=== PATIENT | female | born 1995 | race Two or more races ===

== ENCOUNTER 2017-02-23 15:13 | Emergency (ER) | payer SELFPAY ==
--- NOTE | 2017-02-23 15:43 | ER Document Report ---
ED Medical Screen (RME) - General Chief Complaint: Lower Abdominal Pain Stated Complaint: ABDOMINAL PAIN 9 WEEKS Time Seen by Provider: 02/23/17 15:31 Mode of Arrival: Ambulatory Information source: Patient TRAVEL OUTSIDE OF THE [place] IN LAST 30 DAYS: No - HPI Patient complains to provider of: , abdominal pain Notes: 02/23/17 15:42 Patient is a 21-year-old female who is approximately 9 weeks , presenting to the emergency room today complaining of left-sided abdominal pain this been going on for the past 2 days, she denies any abnormal discharge, no vaginal bleeding, no dysuria, no nausea, vomiting or diarrhea, no fever chills, patient has not yet been seen by SANDBLAST CARVER during this - Related Data Allergies/Adverse Reactions: No Known Allergies Allergy (Verified 02/23/17 15:26) Past Medical History - Social History Chew tobacco use (# tins/day): No Frequency of alcohol use: Occasional Drug Abuse: None Renal/ Medical History: Denies: Hx Peritoneal Dialysis Psychiatric Medical History: Reports: Hx Depression Surgical Hx: Negative - Immunizations Hx Diphtheria, Pertussis, Tetanus Vaccination: Yes History of Influenza Vaccine for 02/2017 - 07/2017 Season: No Physical Exam - Vital signs Vitals: Temp Pulse Resp BP Pulse Ox 98.8 F 73 18 125/78 100 02/23/17 15:26 02/23/17 15:26 02/23/17 15:26 02/23/17 15:26 02/23/17 15:26 Course - Vital Signs Vital signs: Temp Pulse Resp BP Pulse Ox 98.8 F 73 18 125/78 100 02/23/17 15:26 02/23/17 15:26 02/23/17 15:26 02/23/17 15:26 02/23/17 15:26
[2017-02-23 16:24] LABS: ABSOLUTE EOSINOPHILS # (AUTO) 0.2 10^3/uL (0.0-0.6); ABSOLUTE LYMPHOCYTES (AUTO) 2.7 10^3/uL (0.5-4.7); ABSOLUTE MONOCYTES (AUTO) 0.6 10^3/uL (0.1-1.4); ABSOLUTE NEUT (AUTO) 9.1 10^3/uL (1.7-8.2); APPEARANCE,URINE CLOUDY; BASOPHILS % (AUTO) 0.3 % (0-2); BILIRUBIN,URINE NEGATIVE (NEGATIVE); EOSINOPHILS % (AUTO) 1.8 % (0-6); GLUCOSE, URINE NEGATIVE (NEGATIVE); HEMATOCRIT 40.2 % (36.0-47.0); HEMOGLOBIN 14.1 g/dL (12.0-15.5); HGB HCT DIFFERENCE 2.1; KETONES,URINE NEGATIVE (NEGATIVE); LEUKOCYTE ESTERASE,URINE NEGATIVE (NEGATIVE); LYMPHOCYTES % (AUTO) 21.2 % (13-45); MEAN CORPUSCULAR HEMOGLOBIN 30.3 pg (27.0-33.4); MEAN CORPUSCULAR VOLUME 87 fl (80-97); NITRITE,URINE NEGATIVE (NEGATIVE); PROTEIN,URINE NEGATIVE (NEGATIVE); RED BLOOD COUNT 4.63 10^6/uL (3.72-5.28); RED CELL DISTRIBUTION WIDTH 12.9 % (11.5-14.0); SEGMENTED NEUTROPHILS % (AUTO) 71.7 % (42-78); URINE SPECIFIC GRAVITY 1.014; UROBILINOGEN,URINE NEGATIVE mg/dL (<2.0); WHITE BLOOD COUNT 12.7 10^3/uL (4.0-10.5)
[2017-02-23 16:42] LABS: ALANINE AMINOTRANSFERASE 24 U/L (9-52); ALBUMIN 4.4 g/dL (3.5-5.0); ALKALINE PHOSPHATASE 47 U/L (38-126); ANION GAP 12 (5-19); ASPARTATE AMINO TRANSFERASE 20 U/L (14-36); BILIRUBIN,DIRECT 0.3 mg/dL (0.0-0.4); BILIRUBIN,TOTAL 0.4 mg/dL (0.2-1.3); BLOOD UREA NITROGEN 10 mg/dL (7-20); CALCIUM 10.3 mg/dL (8.4-10.2); CARBON DIOXIDE 24 mmol/L (22-30); CHLORIDE 102 mmol/L (98-107); CREATININE RESULT 0.66 mg/dL (0.52-1.25); GLUCOSE 94 mg/dL (75-110); POTASSIUM 3.9 mmol/L (3.6-5.0); SODIUM 137.5 mmol/L (137-145); TOTAL PROTEIN 7.6 g/dL (6.3-8.2)
--- NOTE | 2017-02-23 16:46 | ER Document Report ---
ED General - General Chief Complaint: Lower Abdominal Pain Stated Complaint: ABDOMINAL PAIN 9 WEEKS Time Seen by Provider: 02/23/17 15:31 Mode of Arrival: Ambulatory TRAVEL OUTSIDE OF THE [place] IN LAST 30 DAYS: No - HPI Notes: Patient is a 21-year-old female who presents the ED complaining of intermittent left lower quadrant pain. Patient states the pain is described as sharp and does not radiate. Patient is currently asymptomatic. Patient does note occasional morning nausea, but is still eating and drinking without any difficulties. She is urinating normally and having normal bowel movements. She denies any abdominal surgeries or other significant past medical history. Patient denies any history of abortions or miscarriages. Patient states that she has no vaginal bleeding or discharge. Patient has not established with an FLEET TECHNICIAN yet. Patient believes she is about 9 weeks . She has not been using any [id number] meds for her symptoms. Patient denies any smoking or IV drug use. Denies any headache, fever, neck pain, URI, sore throat, chest pain, palpitations, syncope, cough, shortness of breath, wheeze, dyspnea, vomiting/diarrhea, urinary retention, dysuria, hematuria, back pain, or rash. - Related Data Allergies/Adverse Reactions: No Known Allergies Allergy (Verified 02/23/17 15:26) Past Medical History - General Information source: Patient - Social History Smoking Status: Never Smoker Chew tobacco use (# tins/day): No Frequency of alcohol use: Occasional Drug Abuse: None Family History: Reviewed & Not Pertinent Patient has suicidal ideation: No Patient has homicidal ideation: No Renal/ Medical History: Denies: Hx Peritoneal Dialysis Psychiatric Medical History: Reports: Hx Depression Surgical Hx: Negative - Immunizations Hx Diphtheria, Pertussis, Tetanus Vaccination: Yes Review of Systems - Review of Systems Notes: REVIEW OF SYSTEMS: CONSTITUTIONAL : Denies fever, chills, or sweats. Denies recent illness. EENT: Denies eye, ear, throat, or mouth pain or symptoms. Denies nasal or sinus congestion or discharge. Denies throat, tongue, or mouth swelling or difficulty swallowing. CARDIOVASCULAR: Denies chest pain. Denies palpitations or racing or irregular heart beat. Denies ankle edema. RESPIRATORY: Denies cough, cold, or chest congestion. Denies shortness of breath, difficulty breathing, or wheezing. GASTROINTESTINAL: see hpi. no melena/hematochezia. GENITOURINARY: Denies difficulty urinating, painful urination, burning, frequency, blood in urine, or discharge. FEMALE GENITOURINARY: Denies vaginal bleeding, heavy or abnormal periods, irregular periods. Denies vaginal discharge or odor. MUSCULOSKELETAL: Denies back or neck pain or stiffness. Denies joint pain or swelling. SKIN: Denies rash, lesions or sores. NEUROLOGICAL: Denies confusion or altered mental status. Denies passing out or loss of consciousness. Denies dizziness or lightheadedness. Denies headache. Denies weakness or paralysis or loss of use of either side. Denies problems with gait or speech. Denies sensory loss, numbness, or tingling. ALL OTHER SYSTEMS REVIEWED AND NEGATIVE. Dictation was performed using embraase voice recognition software Physical Exam - Vital signs Vitals: Temp Pulse Resp BP Pulse Ox 98.8 F 73 18 125/78 100 02/23/17 15:26 02/23/17 15:26 02/23/17 15:26 02/23/17 15:26 02/23/17 15:26 Notes: PHYSICAL EXAMINATION: GENERAL: Well-appearing, well-nourished and in no acute distress. A&Ox4. Pt sitting comfortably on exam table in no discomfort. HEAD: Atraumatic, normocephalic. EYES: Pupils equal round and reactive to light, extraocular movements intact, sclera anicteric, conjunctiva are normal. ENT: Nares patent and without discharge. oropharynx clear without exudates. No tonsilar hypertrophy or erythema. Moist mucous membranes. No sinus tenderness. NECK: Normal range of motion, supple without lymphadenopathy LUNGS: Breath sounds clear to auscultation bilaterally and equal. No wheezes rales or rhonchi. HEART: Regular rate and rhythm without murmurs, rubs, gallops. ABDOMEN: Soft, nontender, nondistended abdomen. No guarding, no rebound. No masses appreciated. Normal bowel sounds present. No CVA tenderness bilaterally. : deferred Musculoskeletal: LE's b/l: FROM to passive/active. Strength 5+/5. Extremities: No cyanosis, clubbing, or edema b/l. Peripheral pulses 2+. Capillary refill less than 3 seconds. NEUROLOGICAL: Normal speech, normal gait. Normal sensory, motor exams PSYCH: Normal mood, normal affect. SKIN: Warm, Dry, normal turgor, no rashes or lesions noted. Course - Re-evaluation Re-evalutation: 02/23/17 18:56 Patient is an afebrile, well-hydrated, 21-year-old female who presents to the ED with occasional pain to her left lower quadrant/left adnexal area, but has been asymptomatic her entire stay here in the ED. patient states that she has not had any discomfort since this morning and it has only happened on a couple occasions. CBC, CMP, urinalysis were unremarkable at this time. Pt is per HCG/US. She has a living intrauterine estimated at 8wks and 2 days with a closed cervix and no other acute pathological findings. Pt has not had any bleeding, discharge, odor, or cramping otherwise. Pt's rhogam was cancelled bc of lack of blood. They did not re-draw. Reviewed significant with patient and since she has no active bleeding, she may continue management with the health department in the next 1-2 days. Pt declined pelvic as she will have it performed by OBGYN in the next 1-2 days. Low suspicion/risk for acute appendicitis, bowel obstruction, acute cholecystitis, acute cholangitis, perforated diverticulitis, incarcerated hernia, pancreatitis, perforated ulcer, peritonitis, sepsis, pelvic inflammatory disease, ectopic , tubo- ovarian abscess, ovarian torsion, or other systemic emergent condition at this time. Patient is aware that her condition can change from initial presentation and she needs to monitor symptoms closely and seek medical attention if any acute changes. Conservative measures otherwise for symptoms. Recheck with OBGYN in 1-2 days. Recheck with your PCM this week as well. Consider consult with a e business project manager. Return to the ED with any worsening/concerning symptoms otherwise as reviewed in discharge. Patient is in agreement. - Vital Signs Vital signs: Temp Pulse Resp BP Pulse Ox 98.8 F 73 18 125/78 100 02/23/17 15:26 02/23/17 15:26 02/23/17 15:26 02/23/17 15:26 02/23/17 15:26 - Laboratory Result Diagrams: 02/23/17 15:55 02/23/17 15:55 Laboratory results interpreted by me: 02/23/17 02/23/17 15:55 15:55 WBC 12.7 H Absolute Neutrophils 9.1 H Calcium 10.3 H Beta HCG, Quant 240327.00 H Discharge - Discharge Clinical Impression: Worried well Qualifiers: Weeks of gestation: 8 weeks Qualified Code(s): Z3A.08 - 8 weeks gestation of Condition: Stable Disposition: HOME, SELF-CARE Instructions: Pelvic Pain in and Round Ligament Pain ([facility]), Ob-Oil Mixer Doctors, Family Physicians / Practices Additional Instructions: Maintain fluid/food intake Monitor symptoms closely Proper hygenic technique Keep the skin clean Tylenol as needed Return immediately if symptoms worsen F/u-establish with a PCM this week for recheck Recheck with the health department in the next 1-2 days A list of OBGYNs has also been given to you Have your Rh factor (Rhogam) checked by your OBGYN Return to the ED with any development of DUNBAR/fever, trouble with vision, eye redness, worsening pain, urethral discharge, urinary retention, blood in the urine, flank pain, abdominal pain, n/v, Chest Pain, shortness of breath, joint pains, trouble breathing, vaginal bleeding/odor/discharge/cramping, or any other worsening/concerning symptoms as needed otherwise. Referrals: [facility] [Provider Group] - Follow up as needed [facility] [Provider Group] - Follow up as needed [facility] - [facility] [NO LOCAL MD] - 02/25/17
--- NOTE | 2017-02-23 18:38 | RADIOLOGY REPORT (SQ) ---
EXAM DESCRIPTION: U/S PL4NYOC TRNABD 1GES W/ODOP COMPLETED DATE/TIME: 02/23/2017 6:14 pm REASON FOR STUDY: vaginal bleeding COMPARISON: None. TECHNIQUE: Transabdominal static and realtime grayscale images acquired of the pelvis. Additional se lected spectral and color Doppler images recorded. All images stored on PACs. bHC,000 LIMITATIONS: None. FINDINGS: FETUS: Living intrauterine . CRL 1.8 cm. EGA: 8 weeks 2 days CRSITIAN: 10/03/2017 FHR: 180 beats per minute. SUBCHORIONIC BLEED: No SIZE OF BLEED: Not applicable. UTERUS: No masses. No anomalies. CERVICAL LENGTH: 2.0 cm Closed. RIGHT ADNEXA: Normal ovary with normal vascular flow. No adnexal free fluid. No adnexal masses. LEFT ADNEXA: 1.9 cm luteal cyst. Normal vascular flow. No adnexal free fluid. No adnexal masses. FREE FLUID: None. OTHER: No other significant finding. IMPRESSION: LIVING INTRAUTERINE . EGA 8 weeks 2 days Trimester of : First - 0 to 13 weeks. TECHNICAL DOCUMENTATION: JOB ID: [id number] Not iT- All Rights Reserved
[2017-02-23 19:14] VITALS: BP 122/58
== END 2017-02-23 19:14 | disposition home or self-care (01) ==
LOC: ER 15:13
DX: Z34.91 Encounter for supervision of normal pregnancy, unspecified, first trimester (principal); Z3A.08 8 weeks gestation of pregnancy
CPT/HCPCS: 36415; 76801; 80053; 81001; 84702; 85025; 86900; 86901; 87086; 99284

== ENCOUNTER → 2017-07-25 | Outpatient (CLI) | payer MEDICAID ==
[2017-07-25 18:07] LABS: ABSOLUTE EOSINOPHILS # (AUTO) 0.1 10^3/uL (0.0-0.6); ABSOLUTE LYMPHOCYTES (AUTO) 2.6 10^3/uL (0.5-4.7); ABSOLUTE MONOCYTES (AUTO) 1.2 10^3/uL (0.1-1.4); ABSOLUTE NEUT (AUTO) 11.8 10^3/uL (1.7-8.2); BASOPHILS % (AUTO) 0.1 % (0-2); EOSINOPHILS % (AUTO) 0.7 % (0-6); HEMATOCRIT 37.4 % (36.0-47.0); HEMOGLOBIN 12.4 g/dL (12.0-15.5); LYMPHOCYTES % (AUTO) 16.3 % (13-45); MEAN CORPUSCULAR HEMOGLOBIN 29.2 pg (27.0-33.4); MEAN CORPUSCULAR HGB CONC 33.2 g/dL (32.0-36.0); MEAN CORPUSCULAR VOLUME 88 fl (80-97); MONOCYTES % (AUTO) 7.8 % (3-13); PLATELET COUNT 325 10^3/uL (150-450); RED BLOOD COUNT 4.25 10^6/uL (3.72-5.28); RED CELL DISTRIBUTION WIDTH 13.6 % (11.5-14.0); SEGMENTED NEUTROPHILS % (AUTO) 75.1 % (42-78); TOTAL CELLS COUNTED % (AUTO) 100 %; WHITE BLOOD COUNT 15.7 10^3/uL (4.0-10.5)
[2017-07-25 18:29] LABS: ALANINE AMINOTRANSFERASE 20 U/L (9-52); ALBUMIN 4.1 g/dL (3.5-5.0); ALKALINE PHOSPHATASE 68 U/L (38-126); ANION GAP 8 (5-19); ASPARTATE AMINO TRANSFERASE 17 U/L (14-36); BILIRUBIN,DIRECT 0.3 mg/dL (0.0-0.4); BILIRUBIN,TOTAL 0.3 mg/dL (0.2-1.3); BLOOD UREA NITROGEN 8 mg/dL (7-20); CALCIUM 9.3 mg/dL (8.4-10.2); CARBON DIOXIDE 23 mmol/L (22-30); CHLORIDE 104 mmol/L (98-107); GLUCOSE 78 mg/dL (75-110); LDH 374 U/L (313-618); POTASSIUM 4.9 mmol/L (3.6-5.0); SODIUM 134.8 mmol/L (137-145); TOTAL PROTEIN 6.8 g/dL (6.3-8.2); URIC ACID 4.5 mg/dL (2.5-6.2)
== END ==
LOC: OD 16:46
PROVIDERS: ATTEND Student in an Organized Health Care Education/Training Program
DX: O13.9 Gestational [pregnancy-induced] hypertension without significant proteinuria, unspecified trimester (principal); Z3A.00 Weeks of gestation of pregnancy not specified
CPT/HCPCS: 36415; 80053; 83615; 84550; 85025

== ENCOUNTER 2017-09-09 22:19 | Outpatient (CLI) | payer MEDICAID ==
[2017-09-09 23:04] LABS: APPEARANCE,URINE SLIGHTLY-CLOUDY; BILIRUBIN,URINE NEGATIVE (NEGATIVE); COLOR,URINE YELLOW; GLUCOSE, URINE NEGATIVE (NEGATIVE); KETONES,URINE NEGATIVE (NEGATIVE); LEUKOCYTE ESTERASE,URINE TRACE (NEGATIVE); NITRITE,URINE NEGATIVE (NEGATIVE); PROTEIN,URINE NEGATIVE (NEGATIVE); URINE SPECIFIC GRAVITY 1.006; UROBILINOGEN,URINE NEGATIVE mg/dL (<2.0)
[2017-09-09 23:06] LABS: AMNISURE (ROM) NEGATIVE (NEGATIVE)
[2017-09-09 23:18] LABS: URINE AMPHETAMINES SCREEN NEGATIVE; URINE BARBITURATES SCREEN NEGATIVE; URINE BENZODIAZEPINES SCREEN NEGATIVE; URINE COCAINE SCREEN NEGATIVE; URINE MARIJUANA (THC) SCREEN NEGATIVE; URINE METHADONE SCREEN NEGATIVE; URINE PHENCYCLIDINE SCREEN NEGATIVE
--- NOTE | 2017-09-09 23:36 | Non Stress Test Report ---
Non Stress Test Datetime Report Generated by CPN: 09/09/2017 23:36 DEMOGRAPHIC Test Number: 1 EGA NST: 36.3 INDICATION Indication for Study: Ordered by Provider URINE RESULTS Urine Protein, NST: Negative Urine Ketones - NST: Negative Urine Glucose - NST: Negative Urine Blood - NST: Negative MONITORING Monitor Explained: Monitor Explained; Test Explained; Patient Verbalized Understanding Time on Monitor: 09/09/2017 22:39 Time off Monitor: 09/09/2017 23:29 NST Duration: 50 NST INTERVENTIONS NST Interventions: PO Hydration; Reposition Patient Physician Notified NST: Dr. Choi BABY A: [id number] BABY A Movement : Present Contraction Frequency : occasional FHR Baseline : 135 Accelerations : 15X15 Variability : Moderate 6-25bpm NST Review: Meets Criteria for Reactive NST NST Review and Verified By : K Vitaly RN NST Results: Reactive NST REPORT Report Trigger: Send Report
== END 2017-09-09 23:36 | disposition home or self-care (01) ==
LOC: LC 22:19
PROVIDERS: ATTEND Obstetrics & Gynecology Gynecology
PROC: 4A1HXCZ Monitoring of Products of Conception, Cardiac Rate, External Approach (ICD-10-PCS; principal; 2017-09-09)
DX: O47.03 False labor before 37 completed weeks of gestation, third trimester (principal); Z3A.36 36 weeks gestation of pregnancy
CPT/HCPCS: 59025; 80307; 81001; 84112

== ENCOUNTER 2017-09-12 10:49 | Outpatient (CLI) | payer MEDICAID ==
[2017-09-12 11:27] LABS: APPEARANCE,URINE CLEAR; BILIRUBIN,URINE NEGATIVE (NEGATIVE); COLOR,URINE STRAW; GLUCOSE, URINE NEGATIVE (NEGATIVE); KETONES,URINE NEGATIVE (NEGATIVE); LEUKOCYTE ESTERASE,URINE NEGATIVE (NEGATIVE); NITRITE,URINE NEGATIVE (NEGATIVE); PROTEIN,URINE NEGATIVE (NEGATIVE); URINE SPECIFIC GRAVITY 1.001; UROBILINOGEN,URINE NEGATIVE mg/dL (<2.0)
[2017-09-12 11:44] LABS: URINE AMPHETAMINES SCREEN NEGATIVE; URINE BARBITURATES SCREEN NEGATIVE; URINE BENZODIAZEPINES SCREEN NEGATIVE; URINE COCAINE SCREEN NEGATIVE; URINE MARIJUANA (THC) SCREEN NEGATIVE; URINE METHADONE SCREEN NEGATIVE; URINE PHENCYCLIDINE SCREEN NEGATIVE
[2017-09-12 11:44] LABS: ABSOLUTE EOSINOPHILS # (AUTO) 0.1 10^3/uL (0.0-0.6); ABSOLUTE LYMPHOCYTES (AUTO) 1.9 10^3/uL (0.5-4.7); ABSOLUTE MONOCYTES (AUTO) 0.6 10^3/uL (0.1-1.4); ABSOLUTE NEUT (AUTO) 7.2 10^3/uL (1.7-8.2); BASOPHILS % (AUTO) 0.2 % (0-2); HEMATOCRIT 37.8 % (36.0-47.0); HEMOGLOBIN 12.7 g/dL (12.0-15.5); LYMPHOCYTES % (AUTO) 19.4 % (13-45); MEAN CORPUSCULAR HEMOGLOBIN 29.2 pg (27.0-33.4); MEAN CORPUSCULAR HGB CONC 33.5 g/dL (32.0-36.0); MEAN CORPUSCULAR VOLUME 87 fl (80-97); MONOCYTES % (AUTO) 6.2 % (3-13); PLATELET COUNT 290 10^3/uL (150-450); RED BLOOD COUNT 4.34 10^6/uL (3.72-5.28); RED CELL DISTRIBUTION WIDTH 14.5 % (11.5-14.0); SEGMENTED NEUTROPHILS % (AUTO) 73.2 % (42-78); TOTAL CELLS COUNTED % (AUTO) 100 %; WHITE BLOOD COUNT 9.9 10^3/uL (4.0-10.5)
[2017-09-12 11:53] LABS: UR PRO/CREAT RATIO RESULT 0.8 mg/mg (0.0-0.2); URINE CREATININE 19.5 mg/dL (16-327); URINE PROTEIN 15.9 mg/dL (<12)
[2017-09-12 12:03] LABS: URIC ACID 5.2 mg/dL (2.5-6.2)
--- NOTE | 2017-09-12 12:09 | Non Stress Test Report ---
Non Stress Test Datetime Report Generated by CPN: 09/12/2017 12:09 DEMOGRAPHIC EGA NST: 36.6 INDICATION Indication for Study: Ordered by Provider MONITORING Monitor Explained: Monitor Explained; Test Explained; Patient Verbalized Understanding Time on Monitor: 09/12/2017 11:38 Time off Monitor: 09/12/2017 12:08 NST Duration: 30 NST INTERVENTIONS NST Interventions: PO Hydration; Reposition Patient Physician Notified NST: Gurjit Mcwilliams CNM BABY A: [id number] Movement : Present Movement : Present Contraction Frequency : denies Contraction Frequency : none FHR Baseline : 135 Accelerations : 15X15 Decelerations : None Variability : Moderate 6-25bpm Variability : Moderate 6-25bpm NST Review: Meets Criteria for Reactive NST NST Review: Meets Criteria for Reactive NST NST Review and Verified By : Neno Spring RN NST Results: Reactive NST Results: Reactive NST REPORT Report Trigger: Send Report
== END 2017-09-12 12:36 | disposition home or self-care (01) ==
LOC: LC 10:49
PROVIDERS: ATTEND Obstetrics & Gynecology
PROC: 4A1HXCZ Monitoring of Products of Conception, Cardiac Rate, External Approach (ICD-10-PCS; principal; 2017-09-12)
DX: O12.13 Gestational proteinuria, third trimester (principal); Z3A.36 36 weeks gestation of pregnancy; Z79.899 Other long term (current) drug therapy
CPT/HCPCS: 36415; 59025; 80307; 81001; 82570; 83615; 84156; 84550; 85025

== ENCOUNTER → 2017-09-23 | Outpatient (CLI) | payer MEDICAID ==
[2017-09-23 17:27] LABS: ABSOLUTE EOSINOPHILS # (AUTO) 0.1 10^3/uL (0.0-0.6); ABSOLUTE LYMPHOCYTES (AUTO) 2.3 10^3/uL (0.5-4.7); ABSOLUTE MONOCYTES (AUTO) 0.9 10^3/uL (0.1-1.4); ABSOLUTE NEUT (AUTO) 8.7 10^3/uL (1.7-8.2); BASOPHILS % (AUTO) 0.2 % (0-2); EOSINOPHILS % (AUTO) 0.6 % (0-6); HEMATOCRIT 40.5 % (36.0-47.0); HEMOGLOBIN 13.4 g/dL (12.0-15.5); MEAN CORPUSCULAR HEMOGLOBIN 28.5 pg (27.0-33.4); MEAN CORPUSCULAR VOLUME 86 fl (80-97); MONOCYTES % (AUTO) 7.2 % (3-13); PLATELET COUNT 315 10^3/uL (150-450); RED CELL DISTRIBUTION WIDTH 14.6 % (11.5-14.0); TOTAL CELLS COUNTED % (AUTO) 100 %; WHITE BLOOD COUNT 11.9 10^3/uL (4.0-10.5)
[2017-09-23 17:55] LABS: ALANINE AMINOTRANSFERASE 22 U/L (9-52); ALBUMIN 3.8 g/dL (3.5-5.0); ALKALINE PHOSPHATASE 163 U/L (38-126); ANION GAP 14 (5-19); ASPARTATE AMINO TRANSFERASE 29 U/L (14-36); BILIRUBIN,DIRECT 0.3 mg/dL (0.0-0.4); BILIRUBIN,TOTAL 0.5 mg/dL (0.2-1.3); BLOOD UREA NITROGEN 7 mg/dL (7-20); CALCIUM 10.4 mg/dL (8.4-10.2); CARBON DIOXIDE 22 mmol/L (22-30); CHLORIDE 102 mmol/L (98-107); GLUCOSE 74 mg/dL (75-110); LDH 384 U/L (313-618); POTASSIUM 4.3 mmol/L (3.6-5.0); SODIUM 138.4 mmol/L (137-145); TOTAL PROTEIN 6.8 g/dL (6.3-8.2); URIC ACID 4.9 mg/dL (2.5-6.2)
== END ==
LOC: OD 16:37
PROVIDERS: ATTEND Advanced Practice Midwife
DX: O13.9 Gestational [pregnancy-induced] hypertension without significant proteinuria, unspecified trimester (principal); Z3A.00 Weeks of gestation of pregnancy not specified
CPT/HCPCS: 36415; 80053; 83615; 84550; 85025

== ENCOUNTER 2017-10-06 14:34 | Inpatient (IN) | payer MEDICAID ==
--- NOTE | 2017-10-06 15:22 | Admission Physical ---
Datetime Report Generated by CPN: 10/06/2017 15:22 CURRENT ADMISSION Hx Assessment: The History has been Reviewed and is Current Chief Complaint: Other Chief Complaint Other: IOL/Pre-E Indication for Induction: Postterm; Eclampsia-Mild Admit Impression : Postterm, Intrauterine ; No Active Labor Admit Plan: Admit to Unit; Initiate Labor Induction Protocol ALLERGIES Medication Allergies: No Medication Allergies: No Known Allergies (10/06/2017) Latex: No Latex Allergies Environmental Allergies: pollen OBSTETRICAL HISTORY EDC: 10/04/2017 00:00 : 1 Para: 0 Term: 0 : 0 SAB: 0 IAB: 0 Ectopic: 0 Livin Cesareans: 0 VBACs: 0 Multiple Births: 0 Gestational Diabetes: No Rh Sensitization: No Incompetent Cervix: No JOEY: No Infertility: No ART Treatment: No Uterine Anomaly: No IUGR: No Hx Previous C/S: No Macrosomia: No Hx Loss/Stillborn: No PIH: No Hx : No Placenta Previa/Abruption: No Depression/PP Depression: No PTL/PROM: No Post Hemorrhage: No Current Procedures: Ultrasound; NST Obstetrical History Comments: G1-Current SEE RECORDS Alcohol: No Marijuana : No Cocaine: No Other Illicit Drugs: No Cigarettes: Never Smoker. [id number] MEDICAL HISTORY Diabetes: No Blood Transfusion: No Pulmonary Disease (Asthma, TB): No Breast Disease: No Hypertension: No Study Lead Surgery: No Heart Disease: No Hosp/Surgery: No Autoimmune Disorder: No Anesthetic Complications: No Kidney Disease: No Abnormal Pap Smear: No Neuro/Epilepsy: No Psychiatric Disorders: No Other Medical Diseases: No Hepatitis/Liver Disease: No Significant Family History: No Varicosities/Phlebitis: No Trauma/Violence : No Thyroid Dysfunction: No INFECTIOUS HISTORY Gonorrhea: No Genital Herpes: No Chlamydia: No Tuberculosis: No Syphilis: No Hepatitis: No HIV/AIDS Exposure: No Rash or Viral Illness: No HPV: No PHYSICAL EXAM General: Normal HEENT: Deferred Neurologic: Normal Thyroid: Normal Heart: Normal Lungs: Normal Breast: Normal Back: Normal Abdomen: Normal Genitourinary Exam: Normal Extremities: Normal DTRs: Normal Pelvic Type: Adequate Physical Exam Comments: GBS Neg Pre_E Labile BP's Vital Signs: Reviewed FETUS A EGA: 40.2 Monitoring: External US Variability: Moderate 6-25bpm Accelerations: 15X15 Decelerations: None FHR Category: Category I Admit Comment: 22 y/o here for IOL from office, Pre-E dx by Dr. Kelley, consents signed, POC discussed and pt agrees to proceed with IOL, Dr. Choi Wew of admission Pt denies any complaints PLANS FOR LABOR AND DELIVERY Pain Management: Epidural Feeding Preference: Breast Benefit of Breast Feed Discussed: Yes Circumcision: Yes INFORMED CONSENT Assignment: Junior Choi MD Signature: with User ID: [email or web address] : with User ID: [email or web address]
[2017-10-06] MEDS ORDERED: RINGERS SOLUTION,LACTATED 1,000 ML IV PRN (15:31)
[2017-10-06] MEDS ORDERED: OXYTOCIN/NORMAL SALINE 20 UNIT/1,000 ML RTUINJ IV PRN (15:31)
[2017-10-06 15:50] LABS: ABSOLUTE EOSINOPHILS # (AUTO) 0.1 10^3/uL (0.0-0.6); ABSOLUTE LYMPHOCYTES (AUTO) 1.6 10^3/uL (0.5-4.7); ABSOLUTE MONOCYTES (AUTO) 0.7 10^3/uL (0.1-1.4); ABSOLUTE NEUT (AUTO) 6.3 10^3/uL (1.7-8.2); BASOPHILS % (AUTO) 0.2 % (0-2); EOSINOPHILS % (AUTO) 0.7 % (0-6); HEMATOCRIT 35.6 % (36.0-47.0); HEMOGLOBIN 11.5 g/dL (12.0-15.5); LYMPHOCYTES % (AUTO) 18.2 % (13-45); MEAN CORPUSCULAR HEMOGLOBIN 27.7 pg (27.0-33.4); MEAN CORPUSCULAR HGB CONC 32.2 g/dL (32.0-36.0); MEAN CORPUSCULAR VOLUME 86 fl (80-97); MONOCYTES % (AUTO) 8.3 % (3-13); PLATELET COUNT 270 10^3/uL (150-450); RED BLOOD COUNT 4.14 10^6/uL (3.72-5.28); RED CELL DISTRIBUTION WIDTH 14.9 % (11.5-14.0); SEGMENTED NEUTROPHILS % (AUTO) 72.6 % (42-78); TOTAL CELLS COUNTED % (AUTO) 100 %; WHITE BLOOD COUNT 8.6 10^3/uL (4.0-10.5)
[2017-10-06] MEDS ORDERED: OXYTOCIN/NORMAL SALINE 20 UNIT/1,000 ML RTUINJ ONE ×2 (15:50→21:59)
[2017-10-06 16:07] LABS: ALANINE AMINOTRANSFERASE 22 U/L (9-52); ALBUMIN 3.2 g/dL (3.5-5.0); ALKALINE PHOSPHATASE 143 U/L (38-126); ANION GAP 12 (5-19); ASPARTATE AMINO TRANSFERASE 21 U/L (14-36); BILIRUBIN,DIRECT 0.2 mg/dL (0.0-0.4); BILIRUBIN,TOTAL 0.3 mg/dL (0.2-1.3); BLOOD UREA NITROGEN 9 mg/dL (7-20); CALCIUM 9.4 mg/dL (8.4-10.2); CARBON DIOXIDE 22 mmol/L (22-30); CHLORIDE 106 mmol/L (98-107); GLUCOSE 74 mg/dL (75-110); LDH 322 U/L (313-618); SODIUM 139.9 mmol/L (137-145); TOTAL PROTEIN 5.9 g/dL (6.3-8.2); URIC ACID 4.9 mg/dL (2.5-6.2)
[2017-10-06 16:39] LABS: APPEARANCE,URINE CLEAR; BILIRUBIN,URINE NEGATIVE (NEGATIVE); COLOR,URINE STRAW; GLUCOSE, URINE NEGATIVE (NEGATIVE); KETONES,URINE NEGATIVE (NEGATIVE); LEUKOCYTE ESTERASE,URINE NEGATIVE (NEGATIVE); NITRITE,URINE NEGATIVE (NEGATIVE); PROTEIN,URINE NEGATIVE (NEGATIVE); URINE SPECIFIC GRAVITY 1.002; UROBILINOGEN,URINE NEGATIVE mg/dL (<2.0)
[2017-10-06 17:06] LABS: URINE AMPHETAMINES SCREEN NEGATIVE; URINE BARBITURATES SCREEN NEGATIVE; URINE BENZODIAZEPINES SCREEN NEGATIVE; URINE COCAINE SCREEN NEGATIVE; URINE MARIJUANA (THC) SCREEN NEGATIVE; URINE METHADONE SCREEN NEGATIVE; URINE PHENCYCLIDINE SCREEN NEGATIVE
[2017-10-06 17:12] LABS: UR PRO/CREAT RATIO RESULT 1.1 mg/mg (0.0-0.2); URINE CREATININE 14.4 mg/dL (16-327); URINE PROTEIN 15.3 mg/dL (<12)
[2017-10-06] MEDS ORDERED: FENTANYL/BUPIVACAINE/NS/PF 300 MCG/150 ML RTUINJ EPI ONE (20:33)
[2017-10-06] MEDS ORDERED: EPHEDRINE SULFATE INJ 50 MG/1 ML AMPULE ONE (20:33)
[2017-10-06] MEDS ORDERED: BUPIVACAINE HCL 0.25 % INJ/PF (2.5 MG/1 ML) 30 ML VIAL ONE (20:33)
[2017-10-06] MEDS ORDERED: MISOPROSTOL 0.2 MG TABLET ONE (21:59)
[2017-10-06] MEDS ORDERED: LIDOCAINE 1% INJ-PF (10 MG/ML) 30 ML SDV ONE (21:59)
[2017-10-07] MEDS ORDERED: OXYTOCIN/NORMAL SALINE 20 UNIT/1,000 ML RTUINJ IV PRN (00:50)
[2017-10-07] MEDS ORDERED: GLYCERIN/WITCH HAZEL LEAF 1 EACH MED..PAD TP PRN (00:50)
[2017-10-07] MEDS ORDERED: MAGNESIUM HYDROXIDE SUSP 30 ML UDCUP PO PRN (00:50)
[2017-10-07] MEDS ORDERED: PROMETHAZINE HCL 25 MG TABLET PO PRN (00:50)
[2017-10-07] MEDS ORDERED: NA PHOS,M-B/NA PHOS,DI-BA (ADULT) 133 ML ENEMA PR PRN (00:50)
[2017-10-07] MEDS ORDERED: ACETAMINOPHEN 650 MG SUPP.RECT PR PRN (00:50)
[2017-10-07] MEDS ORDERED: BENZOCAINE/MENTHOL AEROSOL SPRAY 56 ML TOP PRN (00:50)
[2017-10-07] MEDS ORDERED: PROMETHAZINE HCL 25 MG SUPP.RECT PR PRN (00:50)
[2017-10-07] MEDS ORDERED: DIBUCAINE 1% OINTMENT 28 GM TP PRN (00:50)
[2017-10-07] MEDS ORDERED: ZOLPIDEM TARTRATE 5 MG TABLET PO PRN (00:50)
[2017-10-07] MEDS ORDERED: MEASLES,MUMPS&RUBELLA VACC/PF 0.5 ML VIAL SUBCUT PRN (00:50)
[2017-10-07] MEDS ORDERED: PROMETHAZINE HCL INJ 25 MG/1 ML VIAL IV PRN (00:50)
[2017-10-07] MEDS ORDERED: DIPH/PERTUSS(ACELL)/TETANUS VAC/PF 0.5 ML SYR (>=10YO) IM PRN (00:50)
[2017-10-07] MEDS ORDERED: DIPHENHYDRAMINE HCL 25 MG CAPSULE PO PRN (00:50)
[2017-10-07] MEDS ORDERED: ACETAMINOPHEN WITH CODEINE #3 TABLET PO PRN (00:50)
[2017-10-07] MEDS ORDERED: PSEUDOEPHEDRINE HCL 30 MG TABLET PO PRN (00:50)
--- NOTE | 2017-10-07 02:07 | Warning Signs in Babies ---
VOD Warning Signs Datetime Report Generated by [facility]: 10/07/2017 02:07 VOD#608 -Warning Signs in Babies: Viewed with Parent(s)/Family (09/09/2017 22:49:Charmaine Girard RN)
[2017-10-07] MEDS: IBUPROFEN 800 MG TABLET PO SCH ×3 (06:19→21:30)
[2017-10-07] MEDS ORDERED: (PENDING PHARMACY ID) (Prenatal Vit/Iron Fum/Folic Ac [Prenatal Tablet] 1 EACH) PO SCH (10:00)
--- NOTE | 2017-10-07 10:06 | PDOC PROGRESS REPORT ---
Subjective-OB Progress Note for:: 10/07/17 Subjective: 22yo G1 now P1 s/p 10hrs pp. Ambulating, and voiding without difficulty. Denies any concerns or s/s of pre-e. Physical Exam (OB) Vital Signs: Temp Pulse Resp BP Pulse Ox 97.9 F 79 16 115/67 100 10/07/17 08:19 10/07/17 08:19 10/07/17 08:19 10/07/17 08:19 10/07/17 08:19 Intake & Output 10/06/17 10/07/17 10/08/17 06:59 06:59 06:59 Weight 57.1 kg - General General Appearance: Appears well In distress: None - PIH/Pre-Eclampsia DTR's: 2 + Clonus: Negative Headache: Absent Epigastric Pain: No Visual Changes: No - Episiotomy/Laceration Site Condition: N/A - superficial, hemostatic - Lochia Lochia Amount: Small 10-25 ml Lochia Color: Rubra/Red - Abdomen Description: Soft, Round Hernia Present: No Fundal Description: Firm, Midline Fundal Height: 1/u - 2/u - Respiratory Respiratory Status: No respiratory distress - Extremities Upper extremity: Normal inspection Lower extremities: Normal inspection - Neurological Cognition: Normal Orientation: AAOx4 - Psychological Associated symptoms: Normal affect, Normal mood Objective-Diagnostic Laboratory: 10/06/17 15:39 10/06/17 15:39 10/06/17 10/06/17 10/06/17 14:42 15:39 15:39 WBC 8.6 RBC 4.14 Hgb 11.5 L Hct 35.6 L MCV 86 MCH 27.7 MCHC 32.2 RDW 14.9 H Plt Count 270 Seg Neutrophils % 72.6 Lymphocytes % 18.2 Monocytes % 8.3 Eosinophils % 0.7 Basophils % 0.2 Absolute Neutrophils 6.3 Absolute Lymphocytes 1.6 Absolute Monocytes 0.7 Absolute Eosinophils 0.1 Absolute Basophils 0.0 Sodium 139.9 Potassium 4.0 Chloride 106 Carbon Dioxide 22 Anion Gap 12 BUN 9 Creatinine 0.62 Est GFR ( Amer) > 60 Est GFR (Non-Af Amer) > 60 Glucose 74 L Uric Acid 4.9 Calcium 9.4 Total Bilirubin 0.3 AST 21 ALT 22 Alkaline Phosphatase 143 H Total Protein 5.9 L Albumin 3.2 L Urine Color STRAW Urine Appearance CLEAR Urine pH 7.0 Ur Specific [place] 1.002 Urine Protein NEGATIVE Urine Glucose (UA) NEGATIVE Urine Ketones NEGATIVE Urine Blood NEGATIVE Urine Nitrite NEGATIVE Ur Leukocyte Esterase NEGATIVE Urine WBC (Auto) 0 Blood Type Antibody Screen 10/06/17 15:39 WBC RBC Hgb Hct MCV MCH MCHC RDW Plt Count Seg Neutrophils % Lymphocytes % Monocytes % Eosinophils % Basophils % Absolute Neutrophils Absolute Lymphocytes Absolute Monocytes Absolute Eosinophils Absolute Basophils Sodium Potassium Chloride Carbon Dioxide Anion Gap BUN Creatinine Est GFR ( Amer) Est GFR (Non-Af Amer) Glucose Uric Acid Calcium Total Bilirubin AST ALT Alkaline Phosphatase Total Protein Albumin Urine Color Urine Appearance Urine pH Ur Specific [place] Urine Protein Urine Glucose (UA) Urine Ketones Urine Blood Urine Nitrite Ur Leukocyte Esterase Urine WBC (Auto) Blood Type O POSITIVE Antibody Screen NEGATIVE Assessment and Plan(PN) - Assessment and Plan (1) Vaginal delivery Is this a current diagnosis for this admission?: Yes Plan: routine pp care (2) Pre-eclampsia Qualifiers: Trimester: unspecified trimester Qualified Code(s): O14.90 - Unspecified pre-eclampsia, unspecified trimester Is this a current diagnosis for this admission?: Yes Plan: continue to monitor for worsening s/s - Time Spent with Patient Time with patient: Less than 15 minutes Medications reviewed and adjusted accordingly: Yes - Disposition Anticipated Discharge: Home Within: within 48 hours
[2017-10-07] MEDS: PRENATAL VITAMIN W DHA CAPSULE PO SCH (10:20)
[2017-10-07] MEDS: DOCUSATE SODIUM 100 MG CAPSULE PO SCH ×2 (10:21→17:33)
[2017-10-07] MEDS: FERROUS SULFATE 325 MG TABLET PO SCH ×2 (10:21→17:33)
[2017-10-07] MEDS: FAMOTIDINE 20 MG TABLET PO SCH ×2 (10:21→21:30)
[2017-10-07] MEDS: SENNOSIDES/DOCUSATE 8.6-50 MG 1 EACH TABLET PO SCH (10:24)
[2017-10-08] MEDS: IBUPROFEN 800 MG TABLET PO SCH ×3 (05:40→22:33)
[2017-10-08 06:53] LABS: HEMATOCRIT 27.9 % (36.0-47.0); HEMOGLOBIN 9.5 g/dL (12.0-15.5); MEAN CORPUSCULAR VOLUME 85 fl (80-97); PLATELET COUNT 199 10^3/uL (150-450); RED BLOOD COUNT 3.27 10^6/uL (3.72-5.28); RED CELL DISTRIBUTION WIDTH 14.9 % (11.5-14.0)
--- NOTE | 2017-10-08 08:12 | Delivery Summary ---
Del Sum A-C Datetime Report Generated by CPN: 10/08/2017 08:11 DELIVERY PERSONNEL DELIVERY PERSONNEL: [id number] Delivery Doctor:: Junior Choi MD Labor and Delivery Nurse:: Charmaine Bolden RN Labor and Delivery Nurse:: Fanta Haider RN Grain Combiner:: Palma Alvarez RN Middle School Math Teacher/TECHNICAL SALES DIRECTOR: Lizette Dueñaszgerald, ST MATERNAL INFORMATION Delivery Anesthesia: Epidural Medications After Delivery: Pitocin Bolus-Please Comment; Pitocin Drip 20 Units/1000ml NSS; Cytotec 800mcg Per Rectum/Vagina Maternal Complications: Abruptio Placenta Provider Comments: nuchal cord and placenta delivered spontaneous as soon as babt delivered LABOR SUMMARY EDC: 10/04/2017 00:00 No. Babies in Womb: 1 Attempted: No Labor Anesthesia: Epidural LABOR INFORMATION Reason for Induction: Intrauterine Growth Retardation; Pre-Eclampsia Onset of Labor: 10/06/2017 19:27 Complete Dilatation: 10/06/2017 23:18 Oxytocin: Induction Group B Beta Strep: Negative Steroids Given: None Reason Steroids Not Administered: Not Applicable MEMBRANES Membranes Rupture Method: Spontaneous Membranes Rupture Method: Spontaneous Rupture of Membranes: 10/06/2017 23:46 Length of Rupture (hr): 0.88 Amniotic Fluid Color: Bloody Amniotic Fluid Color: Bloody Amniotic Fluid Amount: Small Amniotic Fluid Amount: Small Amniotic Fluid Odor: Normal Amniotic Fluid Odor: Normal STAGES OF LABOR Stage 1 hr: 3 Stage 1 min: 51 Stage 2 hr: 1 Stage 2 min: 21 Stage 3 hr: 0 Stage 3 min: 0 Total Time in Labor hr: 5 Total Time in Labor min: 12 VAGINAL DELIVERY Episiotomy: None Laceration #1: Vaginal Laceration Extension #1: N/A Laceration Repair: Not Applicable Laceration Repair Note: repair not needed CSECTION DELIVERY Primary Indication: N/A Secondary Indication: N/A CSection Incision: N/A BABY A INFORMATION Delivery Date/Time: 10/07/2017 00:39 Method of Delivery: Vaginal Method of Delivery: Vaginal Born in Route : No : N/A Forceps: N/A Vacuum Extraction: N/A Shoulder Dystocia : No PRESENTATION/POSITION BABY A Presentation: Cephalic Cephalic Presentation: Vertex Vertex Position: Right Occipital Anterior Breech Presentation: N/A PLACENTA INFORMATION BABY A Placenta Delivery Time : 10/07/2017 00:39 Placenta Method of Delivery: Spontaneous Placenta Status: Delivered SCORES BABY A Heart Rate 1 min: >100 bpm Resp Effort 1 min: Slow, Irregular Reflex Irritability 1 min: Cough or Sneeze or Pulls Away Muscle Tone 1 min: Some Flexion of Extremities Color 1 min: Body [place], Extremities Blue Resuscitation Effort 1 min: Tactile Stimulation; Oxygen SCORE 1 MIN: 7 Heart Rate 5 min: >100 bpm Resp Effort 5 min: Slow, Irregular Reflex Irritability 5 min: Cough or Sneeze or Pulls Away Muscle Tone 5 min: Active Motion Color 5 min: Body [place], Extremities Blue Resuscitation Effort 5 min: Tactile Stimulation; Oxygen SCORE 5 MIN: 8 Resuscitation Effort 10 min: PPV/NCPAP INFORMATION BABY A Gestational Age at Delivery: 40.3 Gestational Status: Full Term- 39- 40.6 Weeks Outcome : Liveborn Condition : Stable Infant Sex: Male IDENTIFICATION BABY A Verification Date/Time: 10/07/2017 00:50 ID Band Number: [id number] Mother's Name Verified: Yes Infant RN Verifying Infant: D Sprouce US/D [place] RNC WEIGHT/LENGTH BABY A Birthweight (gm): 2920 Weight (lb): 6 Infant Weight (oz): 7 Infant Length (in): 19.75 Infant Length (cm): 50.17 CORD INFORMATION BABY A No. Cord Vessels: 3 Nuchal Cord : Around Neck x1, Loose Cord Blood Taken: No-Annotate (Annotations: Data stored by CPN on behalf of user) Banking/Donate Info: unable to collect cord blood (Annotations: Data stored by CPN on behalf of user) Infant Suction: Mouth; Pharynx ASSESSMENT BABY A Infant Complications: Other Complications- Other: prolonged decel, suspected abruption Physical Findings at Delivery: Molding of the Head Respirations: Grunting Skin to Skin: No Skin to Skin: No Skin to Skin: No Skin to Skin: No Skin to Skin: No Skin to Skin: No Skin to Skin: No Skin to Skin: No Supervisor Dried Yeast/ALS Called : No Infant Care By: Gogo Haider RN. Palma Alvarez RN. Nick oFnseca RN. Transferred To: Nursery BABY B INFORMATION : N/A SIGNATURES Signature: with User ID: [email or web address]
--- NOTE | 2017-10-08 08:53 | PDOC PROGRESS REPORT ---
Subjective-OB Progress Note for:: 10/08/17 Subjective: s/p day #1 Pt doing well, states lochia is stable, pain well controlled, voiding without difficulty. Physical Exam (OB) Vital Signs: Temp Pulse Resp BP Pulse Ox 98.3 F 81 18 119/71 100 10/07/17 19:27 10/07/17 19:27 10/07/17 19:27 10/07/17 19:27 10/07/17 19:27 Intake & Output 10/07/17 10/08/17 10/09/17 06:59 06:59 06:59 Weight 57.1 kg - PIH/Pre-Eclampsia DTR's: 2 + Clonus: Negative Headache: Absent Epigastric Pain: No Visual Changes: No - Lochia Lochia Amount: Scant < 10 ml Lochia Color: Rubra/Red - Abdomen Description: Soft, Round Hernia Present: No Fundal Description: Firm, Midline Fundal Height: u/u - u/2 Objective-Diagnostic Laboratory: 10/08/17 06:30 10/06/17 15:39 10/08/17 06:30 WBC 14.0 H RBC 3.27 L Hgb 9.5 L Hct 27.9 L MCV 85 MCH 29.0 MCHC 34.0 RDW 14.9 H Plt Count 199 Assessment and Plan(PN) - Assessment and Plan (2) Intrauterine growth restriction (IUGR) affecting care of mother Qualifiers: Fetus number: single or unspecified fetus Trimester: third trimester Qualified Code(s): O36.5930 - Maternal care for other known or suspected poor growth, third trimester, not applicable or unspecified Is this a current diagnosis for this admission?: Yes Plan: delivered (3) Non compliance with medical treatment Is this a current diagnosis for this admission?: Yes Plan: d/c planning (4) Pre-eclampsia Qualifiers: Trimester: unspecified trimester Qualified Code(s): O14.90 - Unspecified pre-eclampsia, unspecified trimester Is this a current diagnosis for this admission?: Yes Plan: monitor bp (5) Vaginal delivery Is this a current diagnosis for this admission?: Yes Plan: routine pp care - Time Spent with Patient Time with patient: Less than 15 minutes Critical Time spent with patient: Less than 15 minutes Medications reviewed and adjusted accordingly: Yes - Disposition Anticipated Discharge: Home Within: within 24 hours
[2017-10-08] MEDS: DOCUSATE SODIUM 100 MG CAPSULE PO SCH ×2 (09:54→18:56)
[2017-10-08] MEDS: FERROUS SULFATE 325 MG TABLET PO SCH ×2 (09:54→18:56)
[2017-10-08] MEDS: PRENATAL VITAMIN W DHA CAPSULE PO SCH (09:54)
[2017-10-08] MEDS: SENNOSIDES/DOCUSATE 8.6-50 MG 1 EACH TABLET PO SCH (09:54)
[2017-10-08] MEDS: FAMOTIDINE 20 MG TABLET PO SCH ×2 (09:54→22:32)
[2017-10-09] MEDS: IBUPROFEN 800 MG TABLET PO SCH (05:16)
--- NOTE | 2017-10-09 09:24 | PDOC PROGRESS REPORT ---
Subjective-OB Progress Note for:: 10/09/17 Physical Exam (OB) Vital Signs: Temp Pulse Resp BP Pulse Ox 98.2 F 67 16 105/66 100 10/09/17 08:10 10/09/17 08:10 10/09/17 08:10 10/09/17 08:10 10/09/17 08:10 - PIH/Pre-Eclampsia DTR's: 2 + Clonus: Negative Headache: Absent Epigastric Pain: No Visual Changes: No - Lochia Lochia Amount: Small 10-25 ml Lochia Color: Rubra/Red - Abdomen Description: Soft, Flat Hernia Present: No Bowel Sounds: Normoactive Flatus Presence: Present Stool: Yes Fundal Description: Firm, Midline Fundal Height: u/u - u/2 Objective-Diagnostic Laboratory: 10/08/17 06:30 10/06/17 15:39 Assessment and Plan(PN) - Time Spent with Patient Medications reviewed and adjusted accordingly: Yes - Disposition Anticipated Discharge: Home
--- NOTE | 2017-10-09 09:29 | PDOC DISCHARGE SUMMARY ---
Final Diagnosis Discharge Date: 10/09/17 - Final Diagnosis (1) Acute blood loss anemia Is this a current diagnosis for this admission?: Yes (2) Intrauterine growth restriction (IUGR) affecting care of mother Is this a current diagnosis for this admission?: Yes (3) Non compliance with medical treatment Is this a current diagnosis for this admission?: Yes (4) Pre-eclampsia Is this a current diagnosis for this admission?: Yes (5) Vaginal delivery Is this a current diagnosis for this admission?: Yes Discharge Data - Discharge Medication Home Medications: Vit/Iron Fum/Folic AC [ Tablet] 1 each PO DAILY 09/09/17 Ferrous Sulfate [Feosol 325 mg Tablet] 325 mg PO BID tablet 10/09/17 Gestational Age: 40.3 wks Reason(s) for Admission: Induction of Labor, Status, PIH Procedures: Ultrasound Intrapartum Procedure(s): Spontaneous Vaginal Delivery - Data Baby 1 Male at 1 minute: 7 at 5 minutes: 8 Weight: 2.92 kg Home with Mother: No Complications: Yes - Elevated bilirubin - Diagnosis Test Laboratory: Temp Pulse Resp BP Pulse Ox 98.2 F 67 16 105/66 100 10/09/17 08:10 10/09/17 08:10 10/09/17 08:10 10/09/17 08:10 10/09/17 08:10 10/06/17 10/06/17 10/08/17 14:42 15:39 06:30 RBC 4.14 3.27 L Hgb 11.5 L 9.5 L Hct 35.6 L 27.9 L Urine Opiates Screen NEGATIVE - Discharge information/Instructions Discharge Activity: Activity As Tolerated, Balance Activity w/Rest, Pelvic Rest , Slowly Increase Activity, No tub bath Discharge Diet: Regular Disposition: HOME, SELF-CARE Follow up with: [facility] in: 4, Weeks
[2017-10-09] MEDS: DOCUSATE SODIUM 100 MG CAPSULE PO SCH (09:35)
[2017-10-09] MEDS: SENNOSIDES/DOCUSATE 8.6-50 MG 1 EACH TABLET PO SCH (09:35)
[2017-10-09] MEDS: FERROUS SULFATE 325 MG TABLET PO SCH (09:35)
[2017-10-09] MEDS: PRENATAL VITAMIN W DHA CAPSULE PO SCH (09:35)
[2017-10-09] MEDS: FAMOTIDINE 20 MG TABLET PO SCH (09:36)
[2017-10-09 10:16] VITALS: BP 129/71
== END 2017-10-09 13:36 | disposition home or self-care (01) | DRG 774 ==
LOC: LR 14:34 → 2N 14:34 → UNDOADMIN 14:34 → 2S 10-07 02:55
PROVIDERS: ADMIT Obstetrics & Gynecology Gynecology; ATTEND Obstetrics & Gynecology Gynecology
PROC: 10E0XZZ Delivery of Products of Conception, External Approach (ICD-10-PCS; principal; 2017-10-07)
PROC: 4A1HXCZ Monitoring of Products of Conception, Cardiac Rate, External Approach (ICD-10-PCS; 2017-10-07)
DX: O14.04 Mild to moderate pre-eclampsia, complicating childbirth (principal); O45.8X3 Other premature separation of placenta, third trimester; D62 Acute posthemorrhagic anemia; O70.0 First degree perineal laceration during delivery; O99.02 Anemia complicating childbirth; O69.81X0 Labor and delivery complicated by cord around neck, without compression, not applicable or unspecified; O36.5930 Maternal care for other known or suspected poor fetal growth, third trimester, not applicable or unspecified; O76 Abnormality in fetal heart rate and rhythm complicating labor and delivery; O48.0 Post-term pregnancy; Z3A.40 40 weeks gestation of pregnancy; Z37.0 Single live birth; Z91.19 Patient's noncompliance with other medical treatment and regimen
CPT/HCPCS: 36415; 80053; 80307; 81001; 82570; 83615; 84156; 84550; 85025; 85027; 86850; 86900; 86901; 94760; J2590; J3010; J3490

== ENCOUNTER 2017-12-10 18:55 | Emergency (ER) | payer MEDICAID ==
[2017-12-10] MEDS ORDERED: NORMAL SALINE 1000 ML 1,000 ML IV ONE (19:15)
[2017-12-10] MEDS ORDERED: ONDANSETRON 4 MG TAB.RAPDIS SL ONE (19:16)
--- NOTE | 2017-12-10 19:17 | ER Document Report ---
ED Medical Screen (RME) - General Chief Complaint: Vaginal Bleeding Stated Complaint: VAGINAL BLEEDING Time Seen by Provider: 12/10/17 19:13 Mode of Arrival: Ambulatory Information source: Patient TRAVEL OUTSIDE OF THE [place] IN LAST 30 DAYS: No - HPI Patient complains to provider of: Nausea vomiting and diarrhea Onset: Yesterday Notes: 12/10/17 19:16 Patient is a 22-year-old female presented to the emergency room complaining of nausea vomiting and diarrhea since yesterday, slightly tachycardic in triage area - Related Data Allergies/Adverse Reactions: No Known Allergies Allergy (Verified 12/10/17 18:59) Past Medical History - Social History Chew tobacco use (# tins/day): No Frequency of alcohol use: None Drug Abuse: None Renal/ Medical History: Denies: Hx Peritoneal Dialysis Psychiatric Medical History: Reports: Hx Depression - Immunizations Hx Diphtheria, Pertussis, Tetanus Vaccination: Yes History of Influenza Vaccine for 02/2017 - 07/2017 Season: No Physical Exam - Vital signs Vitals: Temp Pulse Resp BP Pulse Ox 98.6 F 85 14 146/88 H 99 12/10/17 18:58 12/10/17 18:58 12/10/17 18:58 12/10/17 18:58 12/10/17 18:58 Course - Vital Signs Vital signs: Temp Pulse Resp BP Pulse Ox 98.6 F 85 14 146/88 H 99 12/10/17 18:58 12/10/17 18:58 12/10/17 18:58 12/10/17 18:58 12/10/17 18:58 Doctor's Discharge - Discharge Referrals: YONI METZGER CNM [Primary Care Provider] - Follow up as needed
--- NOTE | 2017-12-10 19:23 | ER Document Report ---
ED Medical Screen (RME) - General Chief Complaint: Vaginal Bleeding Stated Complaint: VAGINAL BLEEDING Time Seen by Provider: 12/10/17 19:13 Mode of Arrival: Ambulatory TRAVEL OUTSIDE OF THE [place] IN LAST 30 DAYS: No - HPI Patient complains to provider of: Prolapsed uterus, vaginal bleeding Notes: 12/10/17 19:22 Patient is a 22-year-old female presenting to the emergency room complaining of prolapsed uterus with vaginal bleeding, she is 8 weeks and noted vaginal prolapse approximately 2 weeks ago, she states she had intercourse this morning and is now having bleeding - Related Data Allergies/Adverse Reactions: No Known Allergies Allergy (Verified 12/10/17 18:59) Past Medical History - Social History Chew tobacco use (# tins/day): No Frequency of alcohol use: None Drug Abuse: None Renal/ Medical History: Denies: Hx Peritoneal Dialysis Psychiatric Medical History: Reports: Hx Depression - Immunizations Hx Diphtheria, Pertussis, Tetanus Vaccination: Yes History of Influenza Vaccine for 02/2017 - 07/2017 Season: No Physical Exam - Vital signs Vitals: Temp Pulse Resp BP Pulse Ox 98.6 F 85 14 146/88 H 99 12/10/17 18:58 12/10/17 18:58 12/10/17 18:58 12/10/17 18:58 12/10/17 18:58 Course - Vital Signs Vital signs: Temp Pulse Resp BP Pulse Ox 98.6 F 85 14 146/88 H 99 12/10/17 18:58 12/10/17 18:58 12/10/17 18:58 12/10/17 18:58 12/10/17 18:58 Doctor's Discharge - Discharge Referrals: YONI METZGER CNM [Primary Care Provider] - Follow up as needed
[2017-12-10 19:45] LABS: APPEARANCE,URINE CLEAR; BILIRUBIN,URINE NEGATIVE (NEGATIVE); COLOR,URINE YELLOW; GLUCOSE, URINE NEGATIVE (NEGATIVE); KETONES,URINE NEGATIVE (NEGATIVE); LEUKOCYTE ESTERASE,URINE TRACE (NEGATIVE); NITRITE,URINE NEGATIVE (NEGATIVE); PROTEIN,URINE NEGATIVE (NEGATIVE); UROBILINOGEN,URINE NEGATIVE mg/dL (<2.0)
--- NOTE | 2017-12-10 20:24 | ER Document Report ---
ED General - General Chief Complaint: Vaginal Bleeding Stated Complaint: VAGINAL BLEEDING Time Seen by Provider: 12/10/17 19:13 Mode of Arrival: Ambulatory Information source: Patient Notes: 22-year-old female who is 8 weeks presents with complaints of possible prolapse uterus, patient notes that [facility] who stated the believe she does have 1, patient notes she has a follow-up with ADMINISTRATION PHYSICIAN for further evaluation of this however had intercourse and started to have some bleeding so she got concerned. Patient notes the bleeding has since stopped. She denies any fevers or chills denies any nausea vomiting diarrhea. She denies any abdominal pain. TRAVEL OUTSIDE OF THE [place] IN LAST 30 DAYS: No - HPI Onset: Other - 6 weeks Onset/Duration: Persistent Quality of pain: No pain Severity: Mild Pain Level: Denies Associated symptoms: Other Exacerbated by: Denies Relieved by: Denies Similar symptoms previously: Yes Recently seen / treated by doctor: Yes - Related Data Allergies/Adverse Reactions: No Known Allergies Allergy (Verified 12/10/17 18:59) Past Medical History - General Information source: Patient - Social History Smoking Status: Never Smoker Cigarette use (# per day): No Chew tobacco use (# tins/day): No Smoking Education Provided: No Frequency of alcohol use: None Drug Abuse: None Family History: Reviewed & Not Pertinent Patient has suicidal ideation: No Patient has homicidal ideation: No Renal/ Medical History: Denies: Hx Peritoneal Dialysis Psychiatric Medical History: Reports: Hx Depression - Immunizations Hx Diphtheria, Pertussis, Tetanus Vaccination: Yes Review of Systems - Review of Systems Notes: REVIEW OF SYSTEMS: CONSTITUTIONAL : Denies fever, chills, or sweats. Denies recent illness. EENT: Denies eye, ear, throat, or mouth pain or symptoms. Denies nasal or sinus congestion or discharge. Denies throat, tongue, or mouth swelling or difficulty swallowing. CARDIOVASCULAR: Denies chest pain. Denies palpitations or racing or irregular heart beat. Denies ankle edema. RESPIRATORY: Denies cough, cold, or chest congestion. Denies shortness of breath, difficulty breathing, or wheezing. GASTROINTESTINAL: Denies abdominal pain or distention. Denies nausea, vomiting , or diarrhea. Denies blood in vomitus, stools, or per rectum. Denies black, tarry stools. Denies constipation. GENITOURINARY: Denies difficulty urinating, painful urination, burning, frequency, blood in urine, or discharge. FEMALE GENITOURINARY: Admits to vaginal bleeding MUSCULOSKELETAL: Denies back or neck pain or stiffness. Denies joint pain or swelling. SKIN: Denies rash, lesions or sores. HEMATOLOGIC : Denies easy bruising or bleeding. LYMPHATIC: Denies swollen, enlarged glands. NEUROLOGICAL: Denies confusion or altered mental status. Denies passing out or loss of consciousness. Denies dizziness or lightheadedness. Denies headache. Denies weakness or paralysis or loss of use of either side. Denies problems with gait or speech. Denies sensory loss, numbness, or tingling. Denies seizures. PSYCHIATRIC: Denies anxiety or stress. Denies depression, suicidal ideation, or homicidal ideation. ALL OTHER SYSTEMS REVIEWED AND NEGATIVE. PHYSICAL EXAMINATION: GENERAL: Well-appearing, well-nourished and in no acute distress. HEAD: Atraumatic, normocephalic. EYES: Pupils equal round and reactive to light, extraocular movements intact, conjunctiva are normal. ENT: Nares patent, oropharynx clear without exudates. Moist mucous membranes. NECK: Normal range of motion, supple without lymphadenopathy LUNGS: Breath sounds clear to auscultation bilaterally and equal. No wheezes rales or rhonchi. HEART: Regular rate and rhythm without murmurs ABDOMEN: Soft, nontender, nondistended abdomen. No guarding, no rebound. No masses appreciated. Female : There is no obvious prolapse noted on examination, there is a small amount discharge coming from the office Musculoskeletal: Normal range of motion, no pitting or edema. No cyanosis. NEUROLOGICAL: Cranial nerves grossly intact. Normal speech, normal gait. Normal sensory, motor exams PSYCH: Normal mood, normal affect. SKIN: Warm, Dry, normal turgor, no rashes or lesions noted. Dictation was performed using [employer] voice recognition software Physical Exam - Vital signs Vitals: Temp Pulse Resp BP Pulse Ox 98.6 F 85 14 146/88 H 99 12/10/17 18:58 18 18:58 12/10/17 18:58 12/10/17 18:58 12/10/17 18:58 Course - Vital Signs Vital signs: Temp Pulse Resp BP Pulse Ox 98.6 F 85 14 146/88 H 99 12/10/17 18:58 12/10/17 18:58 12/10/17 18:58 12/10/17 18:58 12/10/17 18:58 - Laboratory Laboratory results interpreted by me: 12/10/17 19:22 Ur Leukocyte Esterase TRACE H Urine Ascorbic Acid 40 H Discharge - Discharge Clinical Impression: Cervical prolapse Condition: Stable Disposition: HOME, SELF-CARE Additional Instructions: Please follow-up with your ADMINISTRATION PHYSICIAN or return immediately if there are any other concerns Referrals: YONI METZGER CNM [CERTIFIED NURSE [employer]] - Follow up as needed
[2017-12-10 20:54] LABS: T.VAGINALIS (WET MOUNT) NO TRICHOMONAS SEEN; WBCS (WET MOUNT) FEW WBCS SEEN; YEAST (WET MOUNT) NO YEAST SEEN
[2017-12-10 20:56] VITALS: BP 152/79
[2017-12-10 22:20] LABS: CHLAM PCR NOT DETECTED (NOT DETECT); GON PCR NOT DETECTED (NOT DETECT)
== END 2017-12-10 21:08 | disposition home or self-care (01) ==
LOC: ER 18:55
DX: N81.2 Incomplete uterovaginal prolapse (principal)
CPT/HCPCS: 81001; 81025; 87210; 87491; 87591; 99284